=== PATIENT | female | born 1975 | race Caucasian/White ===

== ENCOUNTER 2016-06-16 00:19 | Emergency (ER) | payer OTHER ==
[2016-06-16 01:18] VITALS: BP 132/66
== END 2016-06-16 02:49 | disposition left against medical advice (07) ==
LOC: ER 00:19
DX: Z53.21 Procedure and treatment not carried out due to patient leaving prior to being seen by health care provider (principal)

== ENCOUNTER 2016-06-26 06:44 | Emergency (ER) | payer OTHER ==
--- NOTE | 2016-06-26 08:31 | ER Document Report ---
HPI - HPI Patient complains to provider of: tinnitus Pain Level: Denies Context: patient is a 41 year old female who complaining of dizziness and "buzzing in her head" after taking ayesha once 2 weeks ago. Patient states she has had these symptoms in the past when after her concussion two years ago. Denies any recent head trauma or fall. She has been evaluated by her PCP for this issue and is due for a CT scan and EEG pending scheduling after her follow up visit tomorrow. She denies any LOC, near syncope, syncope, headache, hearing los, AMS , confusion, loss of balance, paresthesias, weakness, n/v/d/c, abdominal pain, urinary freq, urgency, pyruia, hematuria. Denies h/o migraines, HTN, HLD, irregular heart rhythm, FH s/f stroke. PCP; kendra gutierrez - REPRODUCTIVE Reproductive: DENIES: : - DERM Skin Color: Normal, [place] Past Medical History - Social History Smoking Status: Never Smoker Family History: Reviewed & Not Pertinent Renal/ Medical History: Denies: Hx Peritoneal Dialysis Past Surgical History: Reports: Hx Section - 3 - Immunizations Hx Diphtheria, Pertussis, Tetanus Vaccination: Yes Vertical Provider Document - CONSTITUTIONAL Agree With Documented VS: Yes Exam Limitations: No Limitations General Appearance: WD/WN, No Apparent Distress - INFECTION CONTROL TRAVEL OUTSIDE OF THE [place] IN LAST 30 DAYS: No - HEENT HEENT: Atraumatic, Normal ENT Exam, Normocephalic, PERRLA. negative: Pharyngeal Exudate, Pharyngeal Tenderness, Pharyngeal Erythema, Tympanic Membrane Red, Tympanic Membrane Bulging Notes: Sinuses are nontender, nonswollen. No evidence of peritonsillar retropharyngeal abscess. Airway is patent - NECK Neck: Normal Inspection. negative: Lymphadenopathy-Left, Lymphadenopathy-Right - RESPIRATORY Respiratory: Breath Sounds Normal, No Respiratory Distress, Chest Non-Tender. negative: Rales, Rhonchi, Wheezing O2 Sat by Pulse Oximetry: 98 - CARDIOVASCULAR Cardiovascular: Regular Rate, Regular Rhythm, No Murmur Pulses: Normal: Radial, Carotid, Dorsalis pedis - GI/ABDOMEN Gastrointestinal: Abdomen Soft, Abdomen Non-Tender, No Organomegaly, Normal Bowel Sounds - MUSCULOSKELETAL/EXTREMETIES Musculoskeletal/Extremeties: MAEW, FROM, Non-Tender, No Edema - NEURO Level of Consciousness: Awake, Alert, Appropriate Motor/Sensory: No Motor Deficit, No Sensory Deficit, No Pronator Drift Notes: Normal gait - DERM Integumentary: Warm, Dry, No Rash Course - Re-evaluation Re-evalutation: 06/26/16 20:29 Patient is a 41-year-old female presents with chronic tinnitus. Discussed with patient that there is no emergent concern today for any neurological causes and that it is appropriate for her to follow up with her primary care physician tomorrow for completion of evaluation with studies that they wanted to order. Patient is hemodynamically stable, no acute distress afebrile. She is alert and oriented 4 with no concern for neurologic deficits. She is able to ambulate on her own without any assistance. Per [facility] protocol and guidelines, this case was discussed with supervising physician Dr. Manuel Hanks prior to discharge - Vital Signs Vital signs: Temp Pulse Resp BP Pulse Ox 97.6 F 69 18 117/69 98 06/26/16 06:48 06/26/16 06:48 06/26/16 06:48 06/26/16 06:48 06/26/16 06:48 Discharge - Discharge Clinical Impression: Tinnitus Condition: Good Disposition: HOME, SELF-CARE Instructions: Dizziness ([facility]) Additional Instructions: Your complaint today was determined to not be acutely life threatening over the course of the next 24 hours You need to follow up with you primary care provider tomorrow Referrals: ANTONIO BENTON MD [Primary Care Provider] - Follow up tomorrow TEVIN JACKSON MD [ACTIVE STAFF] - Follow up as needed
[2016-06-26 08:47] VITALS: BP 120/76
== END 2016-06-26 09:08 | disposition home or self-care (01) ==
LOC: ER 06:44
DX: H93.19 Tinnitus, unspecified ear (principal); R42 Dizziness and giddiness
CPT/HCPCS: 99283

== ENCOUNTER 2016-07-02 19:19 | Emergency (ER) | payer OTHER ==
--- NOTE | 2016-07-02 20:38 | ER Document Report ---
ED Medical Screen (RME) - General Chief Complaint: Dizziness Stated Complaint: DIZZY Notes: Patient is a 41-year-old female who presents with concerns of ongoing tinnitus, vertigo, and twitching after she took an corina tablet 2 weeks ago. She has seen neurology without clear etiology of her symptoms. Her symptoms persist and she is never had a history of similar symptoms in the past. She notes that she does have some degree of anxiety with her symptoms. I have greeted and performed a rapid initial assessment of this patient. A comprehensive ED assessment and evaluation of the patient, analysis of test results and completion of medical decision making process will be conducted by an additional ED providers. TRAVEL OUTSIDE OF THE [place] IN LAST 30 DAYS: No - Related Data Allergies/Adverse Reactions: cephalexin [From Keflex] Adverse Reaction (Mild, Verified 07/02/16 19:24) Dizziness ciprofloxacin [From Cipro] Adverse Reaction (Mild, Verified 07/02/16 19:24) Dizziness fexofenadine [From Corina] Adverse Reaction (Mild, Verified 07/02/16 19:24) Dizziness prednisone Adverse Reaction (Mild, Verified 07/02/16 19:24) Dizziness Past Medical History Renal/ Medical History: Denies: Hx Peritoneal Dialysis Past Surgical History: Reports: Hx Section - 3 - Immunizations Hx Diphtheria, Pertussis, Tetanus Vaccination: Yes Physical Exam - Vital signs Vitals: Temp Pulse Resp BP Pulse Ox 98.0 F 62 19 153/77 H 98 07/02/16 19:24 07/02/16 19:24 07/02/16 19:24 07/02/16 19:24 07/02/16 19:24 Notes: PHYSICAL EXAMINATION: GENERAL: Well-appearing, well-nourished and in no acute distress. HEAD: Atraumatic, normocephalic. EYES: sclera anicteric, conjunctiva are normal. ENT: Moist mucous membranes. NECK: Normal range of motion LUNGS: Normal work of breathing HEART: 2+ radial pulses bilaterally EXTREMITIES: no pitting or edema. No cyanosis. NEUROLOGICAL: No focal neurological deficits. Moves all extremities spontaneously and on command. Twitching intermittently PSYCH: Appears extremely anxious SKIN: Warm, Dry, normal turgor, no rashes or lesions noted. Course - Vital Signs Vital signs: Temp Pulse Resp BP Pulse Ox 98.0 F 62 19 153/77 H 98 07/02/16 19:24 07/02/16 19:24 07/02/16 19:24 07/02/16 19:24 07/02/16 19:24
[2016-07-02 21:30] VITALS: BP 103/67
[2016-07-02 21:44] LABS: ALANINE AMINOTRANSFERASE 30 U/L (9-52); ALBUMIN 4.2 g/dL (3.5-5.0); ALKALINE PHOSPHATASE 73 U/L (38-126); ANION GAP 13 (5-19); ASPARTATE AMINO TRANSFERASE 25 U/L (14-36); BILIRUBIN,DIRECT 0.3 mg/dL (0.0-0.4); BILIRUBIN,TOTAL 0.6 mg/dL (0.2-1.3); BLOOD UREA NITROGEN 15 mg/dL (7-20); CALCIUM 9.8 mg/dL (8.4-10.2); CARBON DIOXIDE 24 mmol/L (22-30); CHLORIDE 106 mmol/L (98-107); CREATININE RESULT 0.69 mg/dL (0.52-1.25); GLUCOSE 106 mg/dL (75-110); MAGNESIUM 2.1 mg/dL (1.6-2.3); PHOSPHORUS 3.8 mg/dL (2.5-4.5); POTASSIUM 4.5 mmol/L (3.6-5.0); SODIUM 142.5 mmol/L (137-145); TOTAL PROTEIN 6.9 g/dL (6.3-8.2)
--- NOTE | 2016-07-02 21:59 | ER Document Report ---
ED ENT - General Chief Complaint: Dizziness Stated Complaint: DIZZY Mode of Arrival: Ambulatory Information source: Patient TRAVEL OUTSIDE OF THE [place] IN LAST 30 DAYS: No - HPI Patient complains to provider of: Other - DIZZY, BUZZING IN HEAD Onset: Other - 2 WEEKS Onset/Duration: Worse - THIS P.M. Context: Allergies, Other - ONSET WHEN TAKING KEFLEX AND TIA CONCURRENTLY Associated symptoms: Congestion, Dizziness, Sinus drainage. denies: Sore throat , Tinnitus Similar symptoms previously: Yes - WITH CONCUSSION IN 2015 Recently seen / treated by doctor: Yes - DR. BENTON, DR. JACKSON - Related Data Allergies/Adverse Reactions: cephalexin [From Keflex] Adverse Reaction (Mild, Verified 07/02/16 19:24) Dizziness ciprofloxacin [From Cipro] Adverse Reaction (Mild, Verified 07/02/16 19:24) Dizziness fexofenadine [From Tia] Adverse Reaction (Mild, Verified 07/02/16 19:24) Dizziness prednisone Adverse Reaction (Mild, Verified 07/02/16 19:24) Dizziness Past Medical History - General Information source: Patient - Social History Smoking Status: Never Smoker Cigarette use (# per day): No Chew tobacco use (# tins/day): No Frequency of alcohol use: Rare Drug Abuse: None Lives with: Family Family History: Reviewed & Not Pertinent Patient has suicidal ideation: No Patient has homicidal ideation: No - Past Medical History Cardiac Medical History: Reports: None Pulmonary Medical History: Reports: None EENT Medical History: Reports: None Neurological Medical History: Reports: None Endocrine Medical History: Reports: None Renal/ Medical History: Reports: None. Denies: Hx Peritoneal Dialysis Malignancy Medical History: Reports: None GI Medical History: Reports: None Musculoskeltal Medical History: Reports None Psychiatric Medical History: Reports: None Traumatic Medical History: Reports: Other - CONCUSSION Past Surgical History: Reports: Hx Section - 3 - Immunizations Hx Diphtheria, Pertussis, Tetanus Vaccination: Yes Review of Systems - Review of Systems Constitutional: No symptoms reported EENT: See HPI Cardiovascular: No symptoms reported. denies: Palpitations Respiratory: No symptoms reported. denies: Cough, Short of breath, Wheezing Gastrointestinal: No symptoms reported Genitourinary: No symptoms reported Female Genitourinary: No symptoms reported Musculoskeletal: No symptoms reported Skin: No symptoms reported Neurological/Psychological: See HPI Physical Exam - Vital signs Vitals: Temp Pulse Resp BP Pulse Ox 98.0 F 62 19 153/77 H 98 07/02/16 19:24 07/02/16 19:24 07/02/16 19:24 07/02/16 19:24 07/02/16 19:24 Interpretation: Hypertensive - General General appearance: Appears well, Alert In distress: None - HEENT Head: Normocephalic Eyes: Normal Conjunctiva: Normal Ears: Normal External canal: Normal Tympanic membrane: Normal Nasal: Normal Mouth/Lips: Normal Mucous membranes: Normal Pharynx: Normal Neck: Normal - Respiratory Respiratory status: No respiratory distress Breath sounds: Normal - Cardiovascular Rhythm: Regular Heart sounds: Normal auscultation Murmur: No - Abdominal Inspection: Normal Bowel sounds: Normal - Extremities General upper extremity: Normal inspection General lower extremity: Normal inspection. No: Tender, Edema - Neurological Neuro grossly intact: Yes Cognition: Normal Orientation: AAOx4 - Psychological Associated symptoms: Normal affect, Normal mood - Skin Skin Temperature: Warm Skin Moisture: Dry Skin Color: Normal Skin Turgor: Elastic Course - Vital Signs Vital signs: Temp Pulse Resp BP Pulse Ox 97.7 F 44 L 20 103/67 99 07/02/16 21:28 07/02/16 21:28 07/02/16 21:28 07/02/16 21:28 07/02/16 21:28 - Laboratory Result Diagrams: 07/02/16 21:16 Discharge - Discharge Clinical Impression: Dizziness of unknown cause Adverse drug effect Qualifiers: Encounter type: initial encounter Qualified Code(s): T88.7XXA - Unspecified adverse effect of drug or medicament, initial encounter Condition: Stable Disposition: HOME, SELF-CARE Instructions: Dizziness ([facility]) Additional Instructions: AVOID ANTIHISTAMINES AND DECONGESTANTS MUCH POSSIBLE. CONTINUE USING FLONASE SPRAY TO MANAGE ALLERGY SYMPTOMS. FOLLOW UP WITH DR. JACKSON. Referrals: ANTONIO BENTON MD [Primary Care Provider] - Follow up as needed
== END 2016-07-02 22:13 | disposition home or self-care (01) ==
LOC: ER 19:19
DX: R42 Dizziness and giddiness (principal); T88.7XXA Unspecified adverse effect of drug or medicament, initial encounter; T50.905A Adverse effect of unspecified drugs, medicaments and biological substances, initial encounter; J34.89 Other specified disorders of nose and nasal sinuses
CPT/HCPCS: 36415; 70450; 80053; 83735; 84100; 84439; 99284

== ENCOUNTER → 2016-07-11 | Outpatient (CLI) | payer OTHER | LOC: RAD 20:28 | PROVIDERS: ATTEND Specialist | DX: G35 Multiple sclerosis (principal); R56.9 Unspecified convulsions | CPT/HCPCS: 70551 ==

== ENCOUNTER → 2016-12-10 | Outpatient (CLI) | payer OTHER | LOC: LAB 19:52 | PROVIDERS: ATTEND Emergency Medicine | DX: R35.0 Frequency of micturition (principal) | CPT/HCPCS: 87086 ==

== ENCOUNTER 2017-01-27 18:36 | Emergency (ER) | payer OTHER ==
[2017-01-27] MEDS ORDERED: FAMOTIDINE INJ/PF 20 MG/2 ML SDV IV ONE (21:08)
--- NOTE | 2017-01-27 21:13 | ER Document Report ---
ED Allergic Reaction - General Chief Complaint: Abdominal Distention Stated Complaint: POSSIBLE ALLERGIC REACTION Time Seen by Provider: 01/27/17 20:55 Notes: Patient is a 41-year-old female that comes emergency department for chief complaint of breaking out into hives around 5 PM, she comes by EMS, she was given 50 mg of Benadryl, she states after the Benadryl the rash resolved and she feels fine. She has not had any return symptoms for the past couple of hours. She denies difficulty breathing, difficulty swallowing, she states that she had a tightness along her throat, neck, chest initially but this has resolved. She states these are the same symptoms she has had before with allergic reactions. She has seen an child care development specialist, is allergic to multiple things including environmental allergies. She has an EpiPen at home but did not have to use it today. TRAVEL OUTSIDE OF THE [place] IN LAST 30 DAYS: No - Related Data Allergies/Adverse Reactions: cephalexin [From Keflex] Adverse Reaction (Mild, Verified 01/27/17 18:39) Dizziness ciprofloxacin [From Cipro] Adverse Reaction (Mild, Verified 01/27/17 18:39) Dizziness fexofenadine [From Corina] Adverse Reaction (Mild, Verified 01/27/17 18:39) Dizziness prednisone Adverse Reaction (Mild, Verified 01/27/17 18:39) Dizziness Past Medical History - General Information source: Patient - Social History Smoking Status: Never Smoker Frequency of alcohol use: None Drug Abuse: None Lives with: Family Family History: Reviewed & Not Pertinent Renal/ Medical History: Denies: Hx Peritoneal Dialysis Past Surgical History: Reports: Hx Section - 3 - Immunizations Hx Diphtheria, Pertussis, Tetanus Vaccination: Yes Review of Systems - Review of Systems Constitutional: No symptoms reported EENT: No symptoms reported Cardiovascular: No symptoms reported Respiratory: No symptoms reported Gastrointestinal: No symptoms reported Genitourinary: No symptoms reported Female Genitourinary: No symptoms reported Musculoskeletal: No symptoms reported Skin: See HPI Hematologic/Lymphatic: No symptoms reported Neurological/Psychological: No symptoms reported Physical Exam - Vital signs Vitals: Temp Pulse Resp BP Pulse Ox 98.0 F 50 L 18 134/72 H 100 01/27/17 18:41 01/27/17 18:41 01/27/17 18:41 01/27/17 18:41 01/27/17 18:41 Interpretation: Normal - General General appearance: Appears well, Alert In distress: None - HEENT Head: Normocephalic, Atraumatic Eyes: Normal Conjunctiva: Normal Extraocular movements intact: Yes Eyelashes: Normal Pupils: PERRL Sinus: Normal Nasal: Normal Mouth/Lips: Normal Mucous membranes: Normal Pharynx: Normal. No: Tonsillar hypertrophy, Uvular edema, Potential airway comprom. Neck: Normal - Respiratory Respiratory status: No respiratory distress Chest status: Nontender Breath sounds: Normal Chest palpation: Normal - Cardiovascular Rhythm: Regular Heart sounds: Normal auscultation Murmur: No - Abdominal Inspection: Normal Distension: No distension Bowel sounds: Normal Tenderness: Nontender Organomegaly: No organomegaly - Back Back: Normal, Nontender - Extremities General upper extremity: Normal inspection, Nontender, Normal color, Normal ROM , Normal temperature General lower extremity: Normal inspection, Nontender, Normal color, Normal ROM , Normal temperature, Normal weight bearing. No: Juan J's sign - Neurological Neuro grossly intact: Yes Cognition: Normal Orientation: AAOx4 Skip Coma Scale Eye Opening: Spontaneous Skip Coma Scale Verbal: Oriented [place] Coma Scale Motor: Obeys Commands Skip Coma Scale Total: 15 Speech: Normal Motor strength normal: LUE, RUE, LLE, RLE Sensory: Normal - Psychological Associated symptoms: Normal affect, Normal mood - Skin Skin Temperature: Warm Skin Moisture: Dry Skin Color: Normal Course - Re-evaluation Re-evalutation: Patient is well-appearing, I do not see a rash, no evidence of mucous membrane involvement, no anaphylaxis, clear airway. Patient is smiling and states that she has not had any symptoms for the past couple of hours. Requesting to leave. Given Pepcid. Patient apparently is allergic to prednisone and Corina , she confirms that she cannot take these because she gets terrible symptoms, however she has been able to take Benadryl and Pepcid without any difficulty in the past. She already has an EpiPen at home. She already sees an child care development specialist. Discussed use of EpiPen and return precautions in detail, patient states understanding and agreement. - Vital Signs Vital signs: Temp Pulse Resp BP Pulse Ox 97.9 F 60 18 122/71 100 01/27/17 21:17 01/27/17 21:17 01/27/17 21:17 01/27/17 21:17 01/27/17 21:17 Discharge - Discharge Clinical Impression: Urticaria Condition: Stable Disposition: HOME, SELF-CARE Additional Instructions: Allergic reaction symptoms appear to have resolved at this time, please take the antihistamines as prescribed at least for the next 3 days. Continue to follow-up with your child care development specialist for management. In the event of difficulty breathing, swelling of the tongue, face, throat, take the EpiPen and return the emergency department immediately. Return for any other concerning symptoms. Prescriptions: Diphenhydramine HCl 25 mg PO Q6H #30 tablet Famotidine [Pepcid 20 mg Tablet] 20 mg PO BID #14 tablet Forms: Return to Work Referrals: ANTONIO BENTON MD [Primary Care Provider] - Follow up as needed
[2017-01-27 21:30] VITALS: BP 122/71
== END 2017-01-27 21:32 | disposition home or self-care (01) ==
LOC: ER 18:36
DX: L50.9 Urticaria, unspecified (principal)
CPT/HCPCS: 99283; 96374; S0028

== ENCOUNTER → 2017-02-01 | Outpatient (CLI) | payer OTHER ==
--- NOTE | 2017-02-01 16:14 | WOMENS IMAGING REPORT ---
EXAM DESCRIPTION: 3D SCREENING MAMMO BILAT COMPLETED DATE/TIME: 02/01/2017 3:54 pm REASON FOR STUDY: ROUTINE SCREENING; Z12.31 Z12.31 ENCNTR SCREEN MAMMOGRAM FOR MALIGNANT NEOPLASM O F GORDON COMPARISON: None. TECHNIQUE: Standard craniocaudal and mediolateral oblique views of each breast recorded using digita l acquisition and breast tomosynthesis. Additional "push-back craniocaudal and mediolateral oblique images acquired. LIMITATIONS: None. FINDINGS: IMPLANTS: Bilateral subpectoral implants. Findings present which are benign by mammographic criteria. No suspicious masses, calcifications or a rchitectural distortion. Read with the assistance of CAD. .[facility] - R2 Cenova Version 1.3 .[facility] Imaging - R2 Cenova Version 1.3 .[facility] - R2 Cenova Version 2.4 .[facility] [place] - R2 Cenova Version 2.4 .[facility] - R2 Animal [employer]eder Version 9.2 Benign mammographic findings may include one or more of the following: Smooth masses, popcorn/rim/co arse calcifications, asymmetries, post-procedure changes, and lesions with long-standing stability. IMPRESSION: BENIGN MAMMOGRAPHIC FINDINGS. BIRADS 2 BREAST DENSITY: c. The breasts are heterogeneously dense, which may obscure small masses. BIRAD: 2 BENIGN FINDING(S) RECOMMENDATION: ROUTINE SCREENING COMMENT: The patient has been notified of the results by letter per [place] requirements. Additional no tification policies are in place for contacting patient with suspicious or incomplete findings. Quality ID #[id number]: The [employer] recommends an annual screening mammogram for women aged 40 years or over. This facility utilizes a reminder system to ensure that all patients receive reminder letters, and/or direct phone calls for appointments. This includes reminders for routine scr eening mammograms, diagnostic mammograms, or other Breast Imaging Interventions when appropriate. Th is patient will be placed in the appropriate reminder system. The [employer] (ACR) has developed recommendations for screening MRI of the breast s in certain patient populations, to be used in conjunction with mammography. Breast MRI surveillanc e may be appropriate for women with more than 20% lifetime risk of developing breast cancer as deter mined by genetic testing, significant family history of the disease, or history of mantle radiation f or Hodgkins Disease. ACR Practice Guidelines 2008. DBT Technology DBT is a type of tomographic mammography. With conventional mammography, overlapping breast tissue ma y make lesions difficult to detect, even with good compression. DBT uses an x-ray tube that rotates a round the breast, taking images at different angles. These images are then combined to create thin sl ices of the breast that the radiologist can view as a 3D reconstruction. The [employer] unit can perform full-field digital mammograms (2D imaging); or DBT (3D imaging); or both, in a combination mode that quickly performs both the mammogram and the tomosynthesis scan while the breast is still compressed. PQRS 6045F: Fluoroscopic imaging is not utilized for breast tomosynthesis. TECHNICAL DOCUMENTATION: FINDING NUMBER: (1) ASSESSMENT: (1) JOB ID: [id number] [employer]- All Rights Reserved
== END ==
LOC: WI 15:13
PROVIDERS: ATTEND Physician Assistant
DX: Z12.31 Encounter for screening mammogram for malignant neoplasm of breast (principal)
CPT/HCPCS: 77063; G0202; 77067